=== PATIENT | female | born 1950 | race Caucasian/White ===

== ENCOUNTER 2019-01-28 12:49 | Outpatient (CLI) | payer OTHER ==
[~2019-01-28 12:49] MED LIST: AMOX1TAB12 PO
== END 2019-01-28 14:54 | disposition home or self-care (01) ==
LOC: RAD 12:49
DX: I10 Essential (primary) hypertension (principal)

== ENCOUNTER 2020-11-15 13:56 | Emergency (ER) | payer OTHER ==
[~2020-11-15] VITALS: Ht 157.5 cm; Wt 39.9 kg
== END 2020-11-15 19:15 | disposition home or self-care (01) ==
LOC: ER 13:56
DX: S30.0XXA Contusion of lower back and pelvis, initial encounter (principal); S20.214A Contusion of middle front wall of thorax, initial encounter; W22.8XXA Striking against or struck by other objects, initial encounter; Y93.89 Activity, other specified; Y92.018 Other place in single-family (private) house as the place of occurrence of the external cause; Y99.8 Other external cause status

== ENCOUNTER 2020-12-23 09:19 | Outpatient (CLI) | payer OTHER | END 2020-12-23 09:36 | disposition home or self-care (01) | LOC: MAMO-SONO 09:19 | PROVIDERS: ATTEND Internal Medicine | DX: Z12.31 Encounter for screening mammogram for malignant neoplasm of breast (principal); D24.2 Benign neoplasm of left breast ==

== ENCOUNTER 2021-03-05 11:01 | Outpatient (CLI) | payer OTHER | END 2021-03-05 11:06 | disposition home or self-care (01) | LOC: SONOGRAMA 11:01 | PROVIDERS: ATTEND Surgery | DX: D24.2 Benign neoplasm of left breast (principal); N60.11 Diffuse cystic mastopathy of right breast; N60.12 Diffuse cystic mastopathy of left breast; R92.0 Mammographic microcalcification found on diagnostic imaging of breast ==

== ENCOUNTER 2021-10-05 18:10 | Emergency (ER) | payer OTHER ==
[~2021-10-05] VITALS: Ht 157.5 cm; Wt 40.8 kg
== END 2021-10-05 19:29 | disposition home or self-care (01) ==
LOC: ER 18:10
DX: S83.91XA Sprain of unspecified site of right knee, initial encounter (principal); W19.XXXA Unspecified fall, initial encounter; Y93.9 Activity, unspecified; Y92.59 Other trade areas as the place of occurrence of the external cause; Y99.9 Unspecified external cause status

== ENCOUNTER 2024-12-31 10:19 | Outpatient (CLI) | payer OTHER | END 2024-12-31 10:23 | disposition home or self-care (01) | LOC: SONOGRAMA 10:19 | PROVIDERS: ATTEND Obstetrics & Gynecology | DX: N95.0 Postmenopausal bleeding (principal) ==